=== PATIENT | female | born 1980 | race Caucasian/White ===

== ENCOUNTER 2022-04-04 15:55 | Outpatient (CLI) | payer OTHER ==
[2022-04-04 16:56] LABS: Anion Gap 15 mmol/L (10-20); BUN (Urea Nitrogen) 16 mg/dL (7.0-18.7); Calc. Creatinine Clearance 0 mL/min (70-130); Calcium 9.4 mg/dL (7.8-10.44); Carbon Dioxide 22 mmol/L (22-29); Chloride 106 mmol/L (98-107); Estimated GFR 110; Glucose 91 mg/dL (70-105); Potassium 4.1 mmol/L (3.5-5.1); Sodium 139 mmol/L (136-145)
== END 2022-04-04 15:56 | disposition home or self-care (01) ==
LOC: CSHLAB 15:55
PROVIDERS: ATTEND Orthopaedic Surgery
DX: Z01.818 Encounter for other preprocedural examination (principal); M22.2X2 Patellofemoral disorders, left knee; M25.562 Pain in left knee; M22.42 Chondromalacia patellae, left knee
CPT/HCPCS: 80048; 82306; 93005; 93010

== ENCOUNTER 2022-04-09 11:03 | Day surgery (SDC) | payer OTHER ==
[2022-04-08 13:15] VITALS: BMI 41.5
[2022-04-09] MEDS ORDERED: Acetaminophen 325 MG TAB ONE (11:27)
[2022-04-09] MEDS ORDERED: Ketorolac Tromethamine 30 MG/ML VIAL ONE ×2 (11:27→12:58)
[2022-04-09] MEDS ORDERED: Gabapentin 300 MG CAP ONE (11:27)
[2022-04-09 11:43] LABS: Hemoglobin 13.3 g/dL (12.0-15.5); Mean Corpuscular HGB CONC 33.6 g/dL (32.0-36.0); Mean Corpuscular Hemoglobin 28.5 pg (27.0-33.0); Mean Platelet Volume 9.6 fl (7.4-10.4); Platelet Count 254 10x3/uL (150-450); RBC Distribution Width 14.2 % (11.5-14.5); Red Blood Cell (RBC) Count 4.66 10x6/uL (3.90-5.03); White Blood Cell (WBC) Count 9.3 10x3/uL (3.5-10.5)
[2022-04-09] MEDS ORDERED: EPINEPHrine 1 MG/ML AMP ONE (12:51)
[2022-04-09] MEDS ORDERED: Bupivacaine PF 0.5% 30 ML VIAL ONE (12:51)
[2022-04-09] MEDS ORDERED: Dexamethasone 20 MG/5 ML VIAL ONE (12:58)
[2022-04-09] MEDS ORDERED: Fentanyl 100 MCG/2 ML VIAL ONE ×2 (12:58→15:48)
[2022-04-09] MEDS ORDERED: Midazolam HCl 2 mg/2 ml Vial ONE (12:58)
[2022-04-09] MEDS ORDERED: Ondansetron PF 4 MG/2 ML Vial ONE (12:58)
[2022-04-09] MEDS ORDERED: PROPOFOL 20 ML ONE ×2 (12:58→14:36)
[2022-04-09] MEDS ORDERED: Glycopyrrolate 0.2 MG/ML 5 ML SYRINGE ONE (12:58)
[2022-04-09] MEDS ORDERED: Bupivacaine HCl 0.5%/Epinephrine 1:200,000/PF 30 ml Vial ONE (13:05)
[2022-04-09] MEDS ORDERED: CEFAZOLIN 2 GM VIAL ONE (13:14)
[2022-04-09] MEDS ORDERED: Tranexamic Acid 1,000 MG/10 ML VIAL ONE (13:18)
[2022-04-09 14:05] LABS: Hemoglobin A1c 5.4 % (4.0-6.0)
[2022-04-09] MEDS ORDERED: Dexamethasone 4 mg/ml Vial ONE (14:28)
[2022-04-09] MEDS ORDERED: HYDROcodone/Acetaminophen 5/325 mg Tablet ONE (16:35)
== END 2022-04-09 17:05 | disposition home or self-care (01) ==
LOC: CSHSDC 11:03
PROVIDERS: ATTEND Orthopaedic Surgery
PROC: 0SQD4ZZ Repair Left Knee Joint, Percutaneous Endoscopic Approach (ICD-10-PCS; principal; 2022-04-09)
DX: S83.242A Other tear of medial meniscus, current injury, left knee, initial encounter (principal); M17.12 Unilateral primary osteoarthritis, left knee; M22.42 Chondromalacia patellae, left knee; I10 Essential (primary) hypertension; M22.2X1 Patellofemoral disorders, right knee; M22.2X2 Patellofemoral disorders, left knee; J45.909 Unspecified asthma, uncomplicated; E66.9 Obesity, unspecified; Z68.41 Body mass index [BMI] 40.0-44.9, adult; K21.9 Gastro-esophageal reflux disease without esophagitis; Z79.899 Other long term (current) drug therapy; X58.XXXA Exposure to other specified factors, initial encounter
CPT/HCPCS: 83036; C1713; J0171; J1100; J1885; J2250; J2405; J2704; J3010; S0020